=== PATIENT | male | born 1945 | race Caucasian/White ===

== ENCOUNTER 2019-12-20 16:25 | Emergency (ER) | payer MEDICARE, OTHER ==
[2019-12-20 16:30] VITALS: BP 168/99; PULSE 85; RESP 20; TEMP 98.4
--- NOTE | 2019-12-20 17:24 | ED ---
ENT HPI - General Chief complaint: ENT Stated complaint: loss of hearing lt ear Time Seen by Provider: 12/20/19 16:35 Source: patient Mode of arrival: ambulatory Limitations: no limitations - History of Present Illness Initial comments: Patient is a 74-year-old male presenting to the emergency Department with complaints of hearing loss of his left ear 3 days. Patient is also having a buzzing sensation coming from his left ear. He denies any trauma to his head. He denies any ear pain, headache, fever, chills. He denies any recent illnesses. Patient does admit to some mild dizziness when he stands too quickly but states he has had this for a long time, this is not new. He's had no other history of ear problems in the past. Patient has no other complaints at this time. Upon arrival to the ER, his vital signs are stable. - Related Data Previous Rx's Medication Instructions Recorded Loratadine [Claritin] 10 mg PO DAILY 14 Days #14 tab 12/20/19 Allergies Allergy/AdvReac Type Severity Reaction Status Date / Time Penicillins Allergy Nausea & Verified 12/20/19 16:31 Vomiting Review of Systems ROS Statement: Those systems with pertinent positive or pertinent negative responses have been documented in the HPI. ROS Other: All systems not noted in ROS Statement are negative. Past Medical History Past Medical History: No Reported History History of Any Multi-Drug Resistant Organisms: None Reported Past Surgical History: Orthopedic Surgery Past Psychological History: No Psychological Hx Reported Smoking Status: Never smoker Past Alcohol Use History: Heavy Past Drug Use History: None Reported General Exam - General Exam Comments Initial Comments: GENERAL: Well-appearing, well-nourished and in no acute distress. HEAD: Atraumatic, normocephalic. EYES: Pupils equal round and reactive to light, extraocular movements intact, sclera anicteric, conjunctiva are normal. ENT: Bilateral cerumen impaction, left cerumen was removed and reveals a non- erythematous TM, with clear effusion present. No drainage. Right TM is not visualized. nares patent, oropharynx clear without exudates. Moist mucous membranes. NECK: Normal range of motion, supple without lymphadenopathy or JVD. LUNGS: Breath sounds clear to auscultation bilaterally and equal. No wheezes rales or rhonchi. HEART: Regular rate and rhythm without murmurs, rubs or gallops. ABDOMEN: Soft, nontender, normoactive bowel sounds. No guarding, no rebound. No masses appreciated. : Deferred EXTREMITIES: Normal range of motion, no pitting or edema. No clubbing or cyanosis. NEUROLOGICAL: Normal speech, normal gait. PSYCH: Normal mood, normal affect. SKIN: Warm, Dry, normal turgor, no rashes or lesions noted. Limitations: no limitations Course Vital Signs 12/20/19 16:28 Temperature 98.4 F Pulse Rate 85 Respiratory 20 Rate Blood Pressure 168/99 O2 Sat by Pulse 99 Oximetry Medical Decision Making - Medical Decision Making Patient is a 74-year-old male presenting with hearing loss of his left ear as well as tinnitus. On exam patient has bilateral cerumen impaction, upon removal of left side, there was an infusion behind TM, no erythema, no signs of infection. No active drainage. Rest of exam is unremarkable. I discussed with patient to try Claritin once a day for 2 weeks. Patient will also be given ENT referral if symptoms do not improve. Patient is in agreement with this plan of care. Return parameters were discussed with the patient he verbalizes understanding. Case discussed with Dr. Villa. Disposition Clinical Impression: Impacted cerumen of both ears, Acute effusion of left ear Disposition: HOME SELF-CARE Condition: Stable Instructions (If sedation given, give patient instructions): Tinnitus (ED) Additional Instructions: Please return to the Emergency Department if symptoms worsen or any other concerns. Try Claritin once daily for 2 weeks. If symptoms persist follow up with ENT as discussed. Prescriptions: Loratadine [Claritin] 10 mg PO DAILY 14 Days #14 tab Is patient prescribed a controlled substance at d/c from ED?: No Referrals: Delmi Shaw MD [Primary Care Provider] - 1-2 days Juan House DO [Doctor of Osteopathic Medicine] - 1-2 days
--- NOTE | 2020-01-12 08:43 | CDI ---
Dear Allen Plascencia , please do addendum for cerumen impaction removal procedure done in ER , done mention in MDM part but procedure notes is not available , please do the needfull , thank you. <Electronically signed by Temo Villa MD> ERIKAD
== END 2019-12-20 17:32 | disposition home or self-care (01) ==
LOC: EC 16:25
DX: H61.23 Impacted cerumen, bilateral (principal); Z88.0 Allergy status to penicillin
CPT/HCPCS: 69209; 99283

== ENCOUNTER 2019-12-26 08:57 | Emergency (ER) | payer MEDICARE, OTHER ==
[2019-12-26 09:09] VITALS: BP 154/105; PULSE 77; RESP 18; TEMP 97.6
--- NOTE | 2019-12-26 09:32 | ED ---
General Adult HPI - General Chief complaint: ENT Stated complaint: lt ear ringing Time Seen by Provider: 12/26/19 09:12 Source: patient, RN notes reviewed Mode of arrival: ambulatory Limitations: no limitations - History of Present Illness Initial comments: 74-year-old male presents to the emergency department for left ear discomfort. Patient states that for about a week now he has had left ear pain and decreased hearing from the left ear. Patient states that he was seen here in the emergency department about a week ago and started on Claritin. States that it has not helped. States he continues to be unable to hear that there is ringing from his left ear. Patient denies headache. Denies any other symptoms. May be some mild congestion. No fevers or chills. Patient did not follow-up with primary care or ENT as directed. Patient has no other complaints at this time including shortness of breath, chest pain, abdominal pain, nausea or vomiting, headache, or visual changes. - Related Data Previous Rx's Medication Instructions Recorded Loratadine [Claritin] 10 mg PO DAILY 14 Days #14 tab 12/20/19 Azithromycin [Zithromax Z-pack] 250 mg PO DIRECTED #6 tab 12/26/19 Fluticasone Nasal [place] [Flonase 1 spray EA NOSTRIL DAILY 7 Days #1 12/26/19 Nasal [place]] bottle Allergies Allergy/AdvReac Type Severity Reaction Status Date / Time Penicillins Allergy Nausea & Verified 12/20/19 16:31 Vomiting Review of Systems ROS Statement: Those systems with pertinent positive or pertinent negative responses have been documented in the HPI. ROS Other: All systems not noted in ROS Statement are negative. Past Medical History Past Medical History: No Reported History History of Any Multi-Drug Resistant Organisms: None Reported Past Surgical History: Orthopedic Surgery Past Psychological History: No Psychological Hx Reported Smoking Status: Never smoker Past Alcohol Use History: Heavy Past Drug Use History: None Reported General Exam Limitations: no limitations General appearance: alert, in no apparent distress Head exam: Present: atraumatic, normocephalic, normal inspection Eye exam: Present: normal appearance, PERRL, EOMI. Absent: scleral icterus, conjunctival injection, periorbital swelling ENT exam: Present: normal exam, normal oropharynx, mucous membranes moist, normal external ear exam. Absent: TM's normal bilaterally (Left tympanic membrane has clear fluid posterior with bubbles consistent with a serous otitis media. There is no erythema consistent with a bacterial otitis.) Neck exam: Present: normal inspection, full ROM. Absent: tenderness, meningismus, lymphadenopathy Respiratory exam: Present: normal lung sounds bilaterally. Absent: respiratory distress, wheezes, rales, rhonchi, stridor Cardiovascular Exam: Present: regular rate, normal rhythm, normal heart sounds. Absent: systolic murmur, diastolic murmur, rubs, gallop, clicks GI/Abdominal exam: Present: soft, normal bowel sounds. Absent: distended, tenderness, guarding, rebound, rigid Neurological exam: Present: alert Course Vital Signs 12/26/19 09:05 Temperature 97.6 F Pulse Rate 77 Respiratory 18 Rate Blood Pressure 154/105 O2 Sat by Pulse 98 Oximetry Medical Decision Making - Medical Decision Making Vitals are stable. Physical exam does reveal a left serous otitis with clear fluid and bubbles behind the left ear drum. There is no erythema of the eardrum consistent with ear infection. Patient is on Claritin. He has not tried and nasal spray. I will start patient on Flonase. He was given the name of ENT (Dr Saucedo as this is who he was referred to in the past) to follow up with as well as his primary care. He will return here to the emergency department with worsening symptoms or fevers. At this has been ongoing for a week patient will try Flonase for the next 3- 4 days. If this does not help he will take antibiotic. Disposition Clinical Impression: Serous otitis media Disposition: HOME SELF-CARE Condition: Good Instructions (If sedation given, give patient instructions): Serous Otitis Media (ED) Additional Instructions: Please use nasal spray for the next several days. If this does not help, you may take antibiotic. Follow-up with ENT by calling for an appointment. He may also follow up with primary care if he can get an appointment. If things are worsening return here to the emergency department. Prescriptions: Fluticasone Nasal [place] [Flonase Nasal [place]] 1 spray EA NOSTRIL DAILY 7 Days #1 bottle Azithromycin [Zithromax Z-pack] 250 mg PO DIRECTED #6 tab Is patient prescribed a controlled substance at d/c from ED?: No Referrals: Delmi Shaw MD [Primary Care Provider] - 1-2 days Time of Disposition: 09:30
== END 2019-12-26 09:38 | disposition home or self-care (01) ==
LOC: EC 08:57
DX: H65.92 Unspecified nonsuppurative otitis media, left ear (principal); Z88.0 Allergy status to penicillin
CPT/HCPCS: 99283

== ENCOUNTER 2020-01-11 14:25 | Emergency (ER) | payer MEDICARE, OTHER ==
[2020-01-11 14:33] VITALS: BP 148/108; PULSE 90; RESP 18; TEMP 97.7
--- NOTE | 2020-01-11 15:07 | ED ---
General Adult HPI - General Chief complaint: ENT Stated complaint: Revisit L Ear Pain Time Seen by Provider: 01/11/20 14:42 Source: patient Mode of arrival: ambulatory Limitations: no limitations - History of Present Illness Initial comments: 74-year-old male patient presents to the emergency department today for evaluation of buzzing in his left ear. Patient states that this is been going on for over a month. States the buzzing is constant. States he was seen and evaluated last month in the emergency department for the same and was given nasal spray and decongestants. Patient states that he has been using these without relief. Denies any drainage or pain in the ear. Denies dizziness or weakness. Denies any injury to his head or the ear. Patient states he has not followed up with his primary care physician or ENT specialist for this. Denies any new medications prior to symptom onset. Patient denies any recent rash, fever, chills, cough, shortness of breath, chest pain, abdominal pain, nausea, vomiting, diarrhea, constipation, back pain, numbness, tingling, hematuria, dysuria, urinary urgency, urinary frequency, headache, visual changes, or any other complaints. - Related Data Previous Rx's Medication Instructions Recorded Loratadine [Claritin] 10 mg PO DAILY 14 Days #14 tab 12/20/19 Azithromycin [Zithromax Z-pack] 250 mg PO DIRECTED #6 tab 12/26/19 Fluticasone Nasal [place] [Flonase 1 spray EA NOSTRIL DAILY 7 Days #1 12/26/19 Nasal [place]] bottle Allergies Allergy/AdvReac Type Severity Reaction Status Date / Time Penicillins Allergy Nausea & Verified 01/11/20 14:33 Vomiting Review of Systems ROS Statement: Those systems with pertinent positive or pertinent negative responses have been documented in the HPI. ROS Other: All systems not noted in ROS Statement are negative. Past Medical History Past Medical History: No Reported History History of Any Multi-Drug Resistant Organisms: None Reported Past Surgical History: Orthopedic Surgery Past Psychological History: No Psychological Hx Reported Smoking Status: Never smoker Past Alcohol Use History: None Reported Past Drug Use History: None Reported General Exam Limitations: no limitations General appearance: alert, in no apparent distress, other (This is a well- developed, well-nourished adult male patient in no acute distress. Vital signs upon presentation are temperature 97.7F, pulse 90, respirations 18, blood pressure 148/108, pulse ox 98% on room air.) Eye exam: Present: normal appearance, PERRL, EOMI. Absent: scleral icterus, conjunctival injection, periorbital swelling ENT exam: Present: normal exam, normal oropharynx, mucous membranes moist, TM's normal bilaterally (Right tympanic membrane is obstructed by cerumen impaction. Left tympanic membrane appears normal. No cerumen present in the canal.) Respiratory exam: Present: normal lung sounds bilaterally. Absent: respiratory distress, wheezes, rales, rhonchi, stridor Cardiovascular Exam: Present: regular rate, normal rhythm, normal heart sounds. Absent: systolic murmur, diastolic murmur, rubs, gallop, clicks Neurological exam: Present: alert, oriented X3, CN II-XII intact Psychiatric exam: Present: normal affect, normal mood Skin exam: Present: warm, dry, intact, normal color. Absent: rash Course Vital Signs 01/11/20 14:29 Temperature 97.7 F Pulse Rate 90 Respiratory 18 Rate Blood Pressure 148/108 O2 Sat by Pulse 98 Oximetry Medical Decision Making - Medical Decision Making 74-year-old male patient presents to the emergency department today for evaluation of buzzing in the left ear. Exam of the ears unremarkable. Tympanic membrane is normal. His vital signs are within normal ranges. Denies any pain, dizziness, or weakness. Symptoms are consistent with tendinitis, cause is uncertain. We discharged follow-up with ENT specialty Dr. Mckenna. He is ins tructed to follow-up with his primary care physician for recheck in 1-2 days. Return parameters were discussed in detail. He verbalizes understanding and agrees with this plan. Disposition Clinical Impression: Tinnitus Disposition: HOME SELF-CARE Condition: Good Instructions (If sedation given, give patient instructions): Tinnitus (ED) Additional Instructions: Follow up with the ENT (Ears, Nose, Throat) specialist for further evaluation. Try listening to music or white noise to try to lessen symptoms. Return to the emergency department for any new, worsening, or concerning symptoms. Is patient prescribed a controlled substance at d/c from ED?: No Referrals: Juvenal Mckenna MD [STAFF PHYSICIAN] - 1-2 days [facility] - 1-2 days Time of Disposition: 15:06
== END 2020-01-11 15:14 | disposition home or self-care (01) ==
LOC: EC 14:25
DX: H93.12 Tinnitus, left ear (principal); Z88.0 Allergy status to penicillin
CPT/HCPCS: 99282

== ENCOUNTER → 2021-06-02 | Outpatient (CLI) | payer MEDICARE, OTHER ==
--- NOTE | 2021-06-03 03:01 | MR ---
EXAMINATION TYPE: MR iac wo/w con DATE OF EXAM: 06/02/2021 COMPARISON: None HISTORY: Left sided sudden hearing loss. CONTRAST: Standard multiplanar, multisequence MRI departmental protocol utilizing 7 mL intravenous Gadavist tram olinium contrast. Multiplanar multiecho imaging of the brain and posterior fossa with out and with IV contrast. There is cerebral cortical atrophy. There is no mass effect nor midline shift. Diffusion images show no evidence of an acute infarct. There are few small scattered white matter high signal foci in both cerebral hemispheres that measure up to 7 mm. Total number is approximately 5. The brainstem is intact. Corpus callosum is intact. Chloe la turcica appears normal. There is no evidence of orbital mass. Optic chiasm appears normal. There is normal appearing internal auditory canals. The acoustic nerve and vestibular nerves appear n ormal. There is no evidence of posterior fossa mass. Mastoid sinuses have normal signal pattern. Contrast images show no pathologic enhancement. There is no evidence of cerebellopontine mass. IMPRESSION: Negative MR scan of the brain. No evidence of a focal posterior fossa abnormality. Mild cerebral atro phy. There are a few scattered white matter small high signal foci of uncertain and doubtful signific ance.
== END | disposition home or self-care (01) ==
LOC: RADMRIMAIN 13:31
PROVIDERS: ATTEND Otolaryngology
DX: G31.9 Degenerative disease of nervous system, unspecified (principal)
CPT/HCPCS: 70553; A9585

== ENCOUNTER → 2025-03-20 | Outpatient (CLI) | payer MEDICARE, OTHER ==
[2025-03-20 15:45] LABS: ALT 20 U/L (10-49); AST 24 U/L (14-35); Cholesterol 190.00 mg/dL (0.00-200.00); HDL Cholesterol 49.20 mg/dL (40.00-60.00); LDL Cholesterol,Calculated 121.9 mg/dL (0.0-131.0); Triglycerides 94.60 mg/dL (0.00-149.00); VLDL Calculation 18.92 mg/dL (5.00-40.00)
== END | disposition home or self-care (01) ==
LOC: LABWHC1 11:24
PROVIDERS: ATTEND Internal Medicine Interventional Cardiology
DX: E78.2 Mixed hyperlipidemia (principal)
CPT/HCPCS: 36415; 80061; 84450; 84460